=== PATIENT | male | born 1975 | race Caucasian/White ===

== ENCOUNTER 2017-08-24 03:32 | Inpatient (IN) ==
[2017-08-24] MEDS ORDERED: SALINE FLUSH 10ml SYRINGE IVF PRN (03:41)
[2017-08-24] MEDS ORDERED: ALBUTEROL/IPRATROPIUM 2.5mg-0.5mg/3ml NEB AEROSOL ONE (03:42)
--- NOTE | 2017-08-24 03:45 | Emergency Department Report ---
General Adult HPI - General Stated complaint: "flu-like" symptoms, fever, chills Time Seen by Provider: 08/24/17 03:41 Source: patient Mode of arrival: ambulatory Limitations: no limitations - History of Present Illness HPI narrative: 42-year-old male presents to the emergency department with the chief complaint of cough and body aches. Patient states his cough is productive of a green sputum. He notes generalized bodyaches. Patient has been noncompliant with his medications for the past almost a year. The body aches are moderate. There are generalized. No radiation. He does not note any exacerbating or remitting factors. Patient was at home when his symptoms began 2 weeks ago and it gradually increased in nature since onset. No other complaints or associated symptoms at this time. - Related Data Home Medications Medication Instructions Recorded Confirmed No known Home medications [No home 08/24/17 08/24/17 meds] Allergies Allergy/AdvReac Type Severity Reaction Status Date / Time codeine Allergy Severe Respiratory Verified 08/24/17 04:05 Depression Penicillins Allergy Severe Vomiting, Verified 08/24/17 04:05 hives morphine Allergy Unknown Verified 08/24/17 04:05 Review of Systems Constitutional: Reports: fever (subjective), weakness (generalized) Eyes: Denies: eye pain, vision change ENT: Denies: ear pain, throat pain Cardiovascular: Denies: chest pain, palpitations Respiratory: Reports: cough, dyspnea, wheezes. Denies: hemoptysis Gastrointestinal: Reports: diarrhea. Denies: abdominal pain, nausea, vomiting Genitourinary: Denies: urgency, dysuria Musculoskeletal: Denies: back pain, arthralgia Integumentary: Denies: erythema, rash Neurological: Denies: headache, numbness, paresthesias Psychiatric: Denies: anxiety, depression Endocrine: Denies: polydipsia, polyuria Hematological/Lymphatic: Denies: easy bruising, lymphadenopathy Allergic/Immunologic: Denies: facial swelling, urticaria PFSH Patient Stated Medical History Hypertension Yes Myocardial Infarction Yes Diabetes Mellitus Type 2 Yes: [id number] doesnt take his insulin Clinic Medical History (Last Reviewed 12/14/16 @ 22:25 by Nuha Nino MD) Diabetic neuropathy (Chronic Medical) Diabetes type 2, controlled (Chronic Medical) Hypertension (Chronic Medical) Heart attack (Resolved Medical) Surgical History: Heart Cath - age 31 Family History: Family History (Last Reviewed 12/14/16 @ 22:25 by Nuha Nino MD) Mother Osteoarthritis Diabetes High blood pressure Maternal Grandmother Cancer Maternal Grandfather Heart attack - Social History Smoking status: Current every day smoker Substance use type: marijuana Alcohol intake: current Alcohol intake frequency: holidays/special occasions only Household members: spouse, children Current occupational status: employed Current occupation: Fabricator Physical Exam - Limitations Limitations: no limitations - General General appearance: alert, in no apparent distress - Normal Exams: Head:: Normocephalic without trauma Eyes:: Pupils are PERRLA w/ EOMI, No scleral icterus, irritation, or foreign bodies noted ENMT:: No facial trauma, nasal exudates, pharyngeal erythema, or exudates are noted Dental: No fractured, loose, or missing teeth noted Neck:: Full range of motion, without adenopathy, JVD, bruits or thyromegaly Chest/Respirations:: Clear all carter (end expiratory wheezes bilaterally.), with good airflow, and symmetry bilaterally Cardiovascular:: Regular rate and rhythm, without murmur or gallop, Pulses 2+ all extremities, capillary refill, <2 seconds all extremities Abdomen:: Bowel sounds positive, soft, non-tender, non-distended, no hepatosplenomegaly, masses or bruits noted Lymphatic:: No lymphadenopathy, or lymphedema noted Musculoskeletal:: No tenderness, or deformity noted, good range of motion, all extremities Integumentary:: No rashes, hives, or bruising noted, hair and nails, without abnormality Neurological:: Patient is alert, and oriented, cranial nerves, motor/sensory/ cerebellar, exams w/o gross deficits, to observation Psychiatric:: Patient exhibits, appropriate attention, emotion and affect Course Vital Signs Temperature 101.7 F H 08/24/17 03:32 Pulse Rate 117 H 08/24/17 03:32 Respiratory Rate 22 08/24/17 03:32 Blood Pressure 133/75 08/24/17 03:32 Pulse Oximetry 91 08/24/17 03:32 Temperature 98.9 F 08/24/17 05:00 Pulse Rate 113 H 08/24/17 05:30 Respiratory Rate 25 H 08/24/17 05:30 Blood Pressure 101/57 08/24/17 05:30 Pulse Oximetry 92 08/24/17 05:30 Medical Decision Making - MDM Narrative Medical decision making narrative: Labs / imaging were discussed in detail with the patient and questions are answered. Patient was given 1 L normal saline intravenously in the emergency department in addition to the 1L of NS given by EMS. Patient was given 1 g acetaminophen by mouth 1 with improvement of symptoms. Levaquin 750 mg iv x 1 was ordered at 0431 when the chest x-ray was reviewed and sepsis was considered. Patient does not have any symptoms consistent with DKA. He is discussed with Dr. Abhishek Valenzuela the hospitalist and will be admitted to the ICU in improved condition. Patient and family are in agreement with the current plan of management. Patient is discussed with Dr. Abhishek Valenzuela and will be accepted to his service in improved condition. No further orders from accepting physician who is in agreement with the current plan of management. Levaquin 750 mg iv x 1 was ordered at 0431 when the chest x-ray was reviewed and sepsis was considered. Patient was never hypotensive in the ED and his lactate was < 4. - Differential Diagnosis pneumonia, bronchitis, viral syndrome, URI - Lab Data Result diagrams: 08/24/17 03:52 08/24/17 03:52 Lab Results 08/24/17 08/24/17 08/24/17 Range/Units 03:52 03:52 04:31 WBC 17.9 H (4.5-11.0) T/MM3 RBC 4.58 (4.50-5.90) M/MM3 Hgb 13.9 (13.5-17.5) GM/DL Hct 40.3 L (41-53) % MCV 88.0 (80-100) UM3 MCH 30.3 (26-34) UUG MCHC 34.5 (31-37) GM/DL RDW Std Deviation 42.2 (36.9-50.2) FL Plt Count 291 (130-400) T/MM3 MPV 10.9 (9.4-12.4) UM3 Immature Gran % (Auto) Not performed Neut % (Auto) Not performed Lymph % (Auto) Not performed Mckinley % (Auto) Not performed Eos % (Auto) Not performed Baso % (Auto) Not performed Neut # (Auto) Not performed Lymph # (Auto) Not performed Mckinley # (Auto) Not performed Eos # (Auto) Not performed Baso # (Auto) Not performed Abs Immat Gran (auto) Not performed Neutrophils % (Manual) 74.0 H (33-66) % Band Neutrophils % 8.0 H (0-6) % Lymphocytes % (Manual) 11.0 L (23-45) % Monocytes % (Manual) 7.0 (0-9.0) % Neutrophils # (Manual) 13.2 H (1.8-7.7) T/MM3 Band Neutrophils # 1.4 T/MM3 Lymphocytes # (Manual) 2.0 (1-4.8) T/MM3 Monocytes # (Manual) 1.3 H (0-0.8) T/MM3 RBC Morph Comment Normal Turbidity < 20 (0-20) Sodium 138 (134-144) MEQ/L Potassium 4.1 (3.6-5) MEQ/L Chloride 99 (98-107) MEQ/L Carbon Dioxide 23 (22-30) MEQ/L Anion Gap 16 H (5-15) meq/L BUN 12.0 (9-20) MG/DL Creatinine 0.9 (0.8-1.5) mg/dL GFR Calculation 92 BUN/Creatinine Ratio 13 (6-26) RATIO Glucose 296 H (75-110) MG/DL Calculated Osmolality 277 (261-280) MOSM/KG Calcium 9.9 (8.4-10.2) MG/DL Total Bilirubin 0.50 (0.20-1.30) MG/DL Icterus Index < 2 (0-7) AST 21 (17-59) U/L ALT 17 (1-50) U/L Alkaline Phosphatase 71 (38-126) U/L Troponin I < 0.012 (0-0.12) ng/ml NT-Pro-B Natriuret Pep < 11.1 (0-175) pg/mL Total Protein 8.0 (6.3-8.2) g/dL Albumin 4.7 (3.5-5.0) g/dL Globulin 3.3 (2.4-3.6) G/DL Albumin/Globulin Ratio 1.4 (1.1-2.2) RATIO Plasma Lactate 2.0 (0.6-2.2) MMOL/L Procalcitonin NG/ML Specimen Hemolysis < 15 (0-25) //18 Range/Units 04:31 WBC (4.5-11.0) T/MM3 RBC (4.50-5.90) M/MM3 Hgb (13.5-17.5) GM/DL Hct (41-53) % MCV (80-100) UM3 MCH (26-34) UUG MCHC (31-37) GM/DL RDW Std Deviation (36.9-50.2) FL Plt Count (130-400) T/MM3 MPV (9.4-12.4) UM3 Immature Gran % (Auto) Neut % (Auto) Lymph % (Auto) Mckinley % (Auto) Eos % (Auto) Baso % (Auto) Neut # (Auto) Lymph # (Auto) Mckinley # (Auto) Eos # (Auto) Baso # (Auto) Abs Immat Gran (auto) Neutrophils % (Manual) (33-66) % Band Neutrophils % (0-6) % Lymphocytes % (Manual) (23-45) % Monocytes % (Manual) (0-9.0) % Neutrophils # (Manual) (1.8-7.7) T/MM3 Band Neutrophils # T/MM3 Lymphocytes # (Manual) (1-4.8) T/MM3 Monocytes # (Manual) (0-0.8) T/MM3 RBC Morph Comment Turbidity (0-20) Sodium (134-144) MEQ/L Potassium (3.6-5) MEQ/L Chloride (98-107) MEQ/L Carbon Dioxide (22-30) MEQ/L Anion Gap (5-15) meq/L BUN (9-20) MG/DL Creatinine (0.8-1.5) mg/dL GFR Calculation BUN/Creatinine Ratio (6-26) RATIO Glucose (75-110) MG/DL Calculated Osmolality (261-280) MOSM/KG Calcium (8.4-10.2) MG/DL Total Bilirubin (0.20-1.30) MG/DL Icterus Index (0-7) AST (17-59) U/L ALT (1-50) U/L Alkaline Phosphatase (38-126) U/L Troponin I (0-0.12) ng/ml NT-Pro-B Natriuret Pep (0-175) pg/mL Total Protein (6.3-8.2) g/dL Albumin (3.5-5.0) g/dL Globulin (2.4-3.6) G/DL Albumin/Globulin Ratio (1.1-2.2) RATIO Plasma Lactate (0.6-2.2) MMOL/L Procalcitonin < 0.05 NG/ML Specimen Hemolysis (0-25) - Radiology Data Chest x-ray: Right sided infiltrate with potential early left-sided infiltrate. - EKG Data EKG #1 EKG results narrative: Sinus tachycardia. 119 bpm. No STEMI. Disposition Clinical Impression: Pneumonia, Sepsis, Hypoxia Disposition: 02 To [facility] Acute Care Condition: Improved Time of Disposition: 04:32 (Admit. Dr. Valenzuela. ) - Seen By: physician
[2017-08-24] MEDS ORDERED: NS 1,000 ML IV ONE ×2 (04:26→05:43)
[2017-08-24] MEDS ORDERED: LEVOFLOXACIN PB 750 MG/150 ML BAG IV SCH (04:45)
[2017-08-24] MEDS: ACETAMINOPHEN 500 MG TABLET PO SCH (04:58)
[2017-08-24] MEDS ORDERED: ALBUTEROL 2.5mg/0.5ml (0.5%) NEB AEROSOL PRN (05:27)
--- NOTE | 2017-08-24 05:32 | History & Physical Report ---
History of Present Illness Date: 08/24/17 Chief complaint: Cough, myalgias HPI: 42 M with uncontrolled diabetes and morbid obesity presented to the ER via EMS following two weeks of progressive productive cough, fever, and myalgias. In the ER he was initially maintaining his SPO2 but this fell following a nebulized bronchodilator treatment and he required supplemental O2 to maintain saturation >90. He met sepsis criteria based on vitals and labs and has a RML/ RLL infiltrate on CXR and is admitted for further evaluation and management. reports that he has been unable to afford OTC insulin for about a year, despite having been diagnosed with an SD at age 31 (no STENT). He however admits he smokes daily including regular marijuana use. he states that he has been admitted for pneumonia once before. Review of Systems - Constitutional Constitutional: Present: chills, fever(s) - Cardiovascular Cardiovascular: Present: dyspnea on exertion. Absent: chest pain, palpitations , syncope, orthopnea - Gastrointestinal Gastrointestinal: Absent: abdominal pain, change in bowel habits - Neurological Neurological: Absent: focal weakness Past Medical History Medical History: Medical History (Last Reviewed 12/14/16 @ 22:25 by Nuha Nino MD) Diabetic neuropathy (Chronic) Diabetes type 2, controlled (Chronic) Hypertension (Chronic) Heart attack (Resolved) Surgical History: Heart Cath - age 31 Family History: Family History (Last Reviewed 12/14/16 @ 22:25 by Nuha Nino MD) Mother Osteoarthritis Diabetes High blood pressure Maternal Grandmother Cancer Maternal Grandfather Heart attack Family History: As Above - Social History Smoking status: Current every day smoker Substance use type: marijuana Alcohol intake frequency: holidays/special occasions only Household members: spouse, children Current occupational status: employed ([employer]) Medications Home Medications Medication Instructions Recorded Confirmed Type No known Home medications [No home 08/24/17 08/24/17 History meds] Allergies Allergy/AdvReac Type Severity Reaction Status Date / Time codeine Allergy Severe Respiratory Verified 08/24/17 04:05 Depression Penicillins Allergy Severe Vomiting, Verified 08/24/17 04:05 hives morphine Allergy Unknown Verified 08/24/17 04:05 Exam Vital Signs: Temperature 101.7 F H 08/24/17 03:32 Pulse Rate 121 H 08/24/17 04:01 Respiratory Rate 20 08/24/17 03:52 Blood Pressure 124/94 H 08/24/17 04:01 Pulse Oximetry 93 08/24/17 04:01 Telemetry Rhythm: Sinus Rhythm, Sinus Tachycardia - Constitutional Present: mild distress - Routine HEENT Exam Head: Present: normocephalic, atraumatic Eye: Present: EOMI, PERRL ENT: Present: mucous membranes moist - Routine Neck Exam Present: supple, full ROM. Absent: JVD Comments: Thick - Routine Respiratory Exam Present: rhonchi. Absent: accessory muscle use, dyspnea, prolonged expiratory phase, respiratory distress - Routine Cardiovascular Exam Present: tachycardia. Absent: no murmur - Routine Abdominal Exam Present: soft, non distended, non tender - Routine Extremities Exam Present: normal capillary refill. Absent: cyanosis, clubbing, edema - Routine Skin Exam Present: intact. Absent: rash - Routine Neurological Exam Present: alert, oriented X3, CN II-XII intact - Routine Psychiatric Exam Present: normal affect - Additional findings Additional findings: Examination performed using telemedicine equipment with the assistance of the bedside nurse Results - Labs CBC & Chem 7: 08/24/17 03:52 08/24/17 03:52 Labs: Lactate 2 - Imaging and Cardiology Chest x-ray Status: image reviewed by me (RML/RLL infiltrate, radiologist's interpretation to be reviewed when available) Assessment and Plan (1) Severe sepsis with acute organ dysfunction Problem details: Evidenced by fever leukocytosis tachypnea and lactic acidosis due to CAP Current visit: Yes Status: Acute (2) CAP (community acquired pneumonia) Current visit: Yes Status: Acute (3) Hypoxia Current visit: Yes Status: Acute (4) Diabetes type 2, uncontrolled Current visit: Yes Status: Acute (5) Morbid obesity Current visit: Yes Status: Acute (6) Diabetic neuropathy Current visit: No Status: Chronic (7) Hypertension Current visit: No Status: Chronic Assessment and Plan: Mr. Farley is admitted to the CCU for IV Levaquin and Aztreonam (given his history of severe PCN allergy), IVF resuscitation to continue what was begun in the ER, Supplemental O2, nebulized breathing treatments, and close monitoring of his hemodynamic and pulmonary status. High dose correctional scale insulin ordered, as is A1C, and he would benefit from diabetes education and perhaps case management services. further symptomatic supportive and diagnostic cares will be provided as the current workup or changes in his clinical scenario indicate. plan of care was discussed with the patient at the time of my evaluation and he expressed understanding and a desire to proceed. i did inform him that continued non-adherence to his diabetes regimen would cost far more in the long run than the cost of insulin and lifestyle modification now. i said in no uncertain terms that my medical recommendation was to stop smoking, stop using marijuana, and use that money instead for medication and to follow-up with cost- effective medical care. DVT Prophylaxis: SCD's, Lovenox - Physician Narrative Physician: Aster Goetz MD Narrative: Date: 08/24/17 Time: 1320 CC: Flu-like symptoms HPI: Mr. Farley is a pleasant 42 y/o male pt with history of diabetes hypertension, previous myocardial infarction and thyroid issues as well as dyslipidemia. The patient went off all his medicines about 5 years ago except insulin. At about a year ago he stopped taking insulin, at that time he was on 70/30. He states this is all due to cost issues. Of note however he continues to smoke a half a pack a day. This winter he has had flu like symptoms multiple times. He reports symptoms of body aching, shortness of breath, cough, malaise and weakness. For the last 2 weeks he has had cough with green sputum production. Coughing makes him nauseated. He denies nausea otherwise. He has had progressive weakness and malaise as well as body aching. He's been restless particularly at night. He did have a fever last weekend and pretty much just laid around all weekend. He said progressive shortness of breath over the last 2 weeks. He has been using some left over albuterol nebulizers from his children and he reports that does help quite a bit. He's also been taken over- the-counter TheraFlu. He denies vomiting. He has had intermittent watery stools most recently 2 days ago. He denies black tarry stools or bloody stools. He denies any genitourinary symptoms. He denies any problems with lower extremity edema. He presented to the emergency room around midnight and was found to have a right middle lobe/right lower lobe infiltrate on his chest x-ray suggestive of pneumonia. His white blood cell count was elevated at 17.9 with 8% bands. Lactate was 2 and pro-calcitonin was normal. He had a temperature of 101.7 with a heart rate of 117. He came by EMS and was given a liter fluid by them. He was given another liter of fluid in the ER as well as Levaquin IV. When seen by me this morning he continues to feel rather poorly. He continues to feel short of breath and has a cough. He denies nausea. He did eat breakfast this morning without difficulty. He denies feeling feverish at this time. He denies lightheadedness or dizziness. He does continue to fill achy all over. Past medical history: Current medications: none Allergies: codeine, penicillins, morphine Medical history: hypertension hyperlipidemia hypothyroidism diabetes type II history of myocardial infarction without intervention Surgical history: heart catheterization Social history: with children current everyday smoker up approximately 1/2 pack a day history of smoking as much as 1 1/2 packs a day and has been smoking for 30 years. Previous heavy alcohol abuser but nothing lately daily marijuana use Family History: Mom living at. She has a history of coronary artery disease with bypass surgery, diabetes and valvular heart disease Dad history is unknown except that he is and he was alcoholic Review of systems: all 14 point review of systems were reviewed and were negative except as noted in the history of present illness Physical exam: Current vital signs:T 99.0, P106,R16, BP 108/64, 96% on 3 liters Gen: alert and oriented. NAD Skin: warm and dry HEENT: NC/AT PERRL, EOMI, Sclera, lids and conjunctiva wnl, MMM, OP clear Neck: supple. No JVD, Carotids 2+ without bruits. Lungs: Coarse, rhonchi on the right. No rales or wheezes. CV: regular. No murmur, rub or gallop Abd: soft. NT/ND, +BS MS: No edema. Good strength and ROM. Neuro: No focal deficit Psy: normal mood and affect Assessment and plan: CAP (community acquired pneumonia) -RML/RLL -Levaquin and aztre -Resp therapy -repeat CXR in am -Sputum cx pending -Blood cx pending Hypoxia -Wean oxygen as tolerated Diabetes type 2, uncontrolled -SSI -Diabetes education -CM c/s to help in obtaining medications Hypertension -currently low normal BPs, will address medications should he need some prior to discharge. HLP -Lipid profile -Pravastatin H/O SD without documented CAD -ASA -STatin Smoker -Advised cessation h/o hypothyroidism -Recheck TSH/FT4 Prophylaxis PPI, Lovenox Sepsis Assessment - Evaluation SIRS Criteria: temperature > 100.9, pulse > 90 beats/minute, WBC > 12,000, RR > 20 Severe Sepsis: lactate > 2.0 mg/dL Hospital Course Summary Disclaimer: The visit summary below is not to be considered part of the above Progress Note.
[2017-08-24] MEDS ORDERED: SALINE FLUSH 10ml SYRINGE IV PRN (05:43)
[2017-08-24] MEDS ORDERED: ONDANSETRON 4 MG/2 ML INJECTION IVP PRN (05:43)
[2017-08-24] MEDS ORDERED: GLUCOSE ORAL GEL 40% 37.5gm PO PRN (05:43)
[2017-08-24] MEDS ORDERED: DEXTROSE 50% SYRINGE 50ml (1 AMP) IVP PRN (05:43)
[2017-08-24 05:52] VITALS: BMI 39.9
[2017-08-24] MEDS: AZTREONAM 1 G in NS 100 ML IV SCH ×3 (06:32→18:37)
[2017-08-24] MEDS: LEVOFLOXACIN PB 750 MG/150 ML BAG IV SCH (06:33)
--- NOTE | 2017-08-24 07:58 | XRay Report ---
Indication: cough PROCEDURE: XR chest 1V: Encounter: Initial Comparison: None Findings: Airspace consolidation in the right midlung could be within the upper or middle lobes. Left lung is clear. No pleural effusion or pneumothorax. Heart size and mediastinal contours are within normal limits. Pulmonary vascularity is normal. Impression: Right-sided pneumonia. Recommend radiographic follow-up to document clearance. .
[2017-08-24] MEDS: INSULIN ASPART 100unit/ml INJECTION SQ PRN ×4 (08:10→22:26)
[2017-08-24] MEDS: ENOXAPARIN 40 MG/0.4 ML INJECTION SQ SCH (08:35)
[2017-08-24] MEDS: ACETAMINOPHEN 325 MG TABLET PO PRN ×2 (08:43→17:09)
[2017-08-24] MEDS: NS 1,000 ML IV SCH (14:15)
[2017-08-25] MEDS: NS 1,000 ML IV SCH ×3 (00:17→21:12)
[2017-08-25] MEDS: AZTREONAM 1 G in NS 100 ML IV SCH ×4 (01:05→20:42)
[2017-08-25] MEDS: ACETAMINOPHEN 500 MG TABLET PO SCH (03:55)
[2017-08-25] MEDS: LEVOFLOXACIN PB 750 MG/150 ML BAG IV SCH (06:40)
--- NOTE | 2017-08-25 08:31 | XRay Report ---
INDICATION: PNA PROCEDURE: CHEST 2-VIEWS UPRIGHT (PA & LAT) Encounter: Initial COMPARISON: August 24, 2017 FINDINGS: Continued airspace consolidation in the right midlung which is seen to be in the middle lobe on the lateral view. Left lung is stable and clear. No pneumothorax or pleural effusion. Heart size, pulmonary vascularity and mediastinal contours are within normal limits. Impression: No significant change in right middle lobe pneumonia. .
[2017-08-25] MEDS: ENOXAPARIN 40 MG/0.4 ML INJECTION SQ SCH (09:08)
[2017-08-25] MEDS: ASPIRIN 81 MG CHEWABLE TABLET PO SCH (09:08)
[2017-08-25] MEDS: METFORMIN 500 MG TABLET PO SCH (20:42)
[2017-08-25] MEDS: PRAVASTATIN 40 MG TABLET PO SCH (20:42)
[2017-08-25] MEDS: INSULIN ASPART 100unit/ml INJECTION SQ PRN (21:14)
[2017-08-26] MEDS: AZTREONAM 1 G in NS 100 ML IV SCH ×4 (02:06→19:07)
[2017-08-26] MEDS: NS 1,000 ML IV SCH ×3 (04:48→22:04)
[2017-08-26] MEDS: ACETAMINOPHEN 500 MG TABLET PO SCH (04:52)
[2017-08-26] MEDS: LEVOFLOXACIN PB 750 MG/150 ML BAG IV SCH (06:04)
[2017-08-26] MEDS: LEVOTHYROXINE 112 MCG TABLET PO SCH (06:04)
[2017-08-26] MEDS: INSULIN ASPART 100unit/ml INJECTION SQ PRN ×4 (06:04→21:24)
[2017-08-26] MEDS: ASPIRIN 81 MG CHEWABLE TABLET PO SCH (09:04)
[2017-08-26] MEDS: METFORMIN 500 MG TABLET PO SCH ×2 (09:04→19:04)
[2017-08-26] MEDS: ENOXAPARIN 40 MG/0.4 ML INJECTION SQ SCH (09:05)
--- NOTE | 2017-08-26 09:35 | Progress Note ---
- Date 08/26/17 Subjective: Mr. Farley is a pleasant 42 y/o male pt with history of diabetes hypertension , previous myocardial infarction and thyroid issues as well as dyslipidemia. The patient went off all his medicines about 5 years ago except insulin. At about a year ago he stopped taking insulin, at that time he was on 70/30. He states this is all due to cost issues. Of note however he continues to smoke a half a pack a day. This winter he has had flu like symptoms multiple times. He reports symptoms of body aching, shortness of breath, cough, malaise and weakness. For the last 2 weeks he has had cough with green sputum production. Coughing makes him nauseated. He denies nausea otherwise. He has had progressive weakness and malaise as well as body aching. He's been restless particularly at night. He did have a fever last weekend and pretty much just laid around all weekend. He said progressive shortness of breath over the last 2 weeks. He has been using some left over albuterol nebulizers from his children and he reports that does help quite a bit. He's also been taken over- the-counter TheraFlu. He denies vomiting. He has had intermittent watery stools most recently 2 days ago. He denies black tarry stools or bloody stools. He denies any genitourinary symptoms. He denies any problems with lower extremity edema. He presented to the emergency room around midnight and was found to have a right middle lobe/right lower lobe infiltrate on his chest x-ray suggestive of pneumonia. His white blood cell count was elevated at 17.9 with 8% bands. Lactate was 2 and pro-calcitonin was normal. He had a temperature of 101.7 with a heart rate of 117. He came by EMS and was given a liter fluid by them. He was given another liter of fluid in the ER as well as Levaquin IV. 08/26/17 When seen by me this morning he is sitting up in the chair. He states he had a really rough night. He was unable to sleep due to his restless leg syndrome and nicotine withdrawal. He was able to cough up a large sputum bolus last evening. He feels like he's breathing better since then. Denies any fevers or chills. He denies any chest pain or pressure. He denies palpitations. He denies any nausea , vomiting. He reports eating well. He has been ambulating in the room. He is maintaining on room air. Objective Vital signs: Temperature 98.5 F 08/26/17 00:00 Pulse Rate 76 08/26/17 07:00 Respiratory Rate 16 08/26/17 07:00 Blood Pressure 130/86 08/26/17 07:00 Pulse Oximetry 96 08/26/17 07:00 Height/Weight/BMI: Height 1.63 m Weight 106.1 kg Body Mass Index 39.9 Comments: Gen: alert and oriented. NAD Skin: warm and dry HEENT: NC/AT PERRL, EOMI, Sclera, lids and conjunctiva wnl, MMM, OP clear Neck: supple. No JVD, Carotids 2+ without bruits. Lungs: Coarse, No rales or wheezes. CV: regular. No murmur, rub or gallop Abd: soft. NT/ND, +BS MS: No edema. Good strength and ROM. Neuro: No focal deficit Psy: normal mood and affect Results - Labs CBC & Chem 7: 08/26/17 04:07 08/26/17 04:07 Microbiology Results: Microbiology 08/25/17 13:15 Peripheral/Iv Start Blood Culture - Preliminary Culture Initiated - Results Pending 08/25/17 13:21 Peripheral/Iv Start Blood Culture - Preliminary Culture Initiated - Results Pending 08/24/17 07:09 Sputum, Expectorated Gram Stain - Final 08/24/17 07:09 Sputum, Expectorated Sputum Culture - Preliminary Early growth 08/24/17 07:09 Urine Streptococcus pneumoniae Antigen (M - Final Assessment and Plan (1) Severe sepsis with acute organ dysfunction Problem details: Evidenced by fever leukocytosis tachypnea and lactic acidosis due to CAP Current visit: Yes Status: Acute (2) CAP (community acquired pneumonia) Current visit: Yes Status: Acute (3) Hypoxia Current visit: Yes Status: Acute (4) Diabetes type 2, uncontrolled Current visit: Yes Status: Acute (5) Morbid obesity Current visit: Yes Status: Acute (6) Diabetic neuropathy Current visit: No Status: Chronic (7) Hypertension Current visit: No Status: Chronic Assessment and Plan: Assessment and plan: CAP (community acquired pneumonia) -RML/RLL -Levaquin and aztreonam -Resp therapy -repeat CXR 08/25/17 showed no significant change in his right sided pneumonia -Sputum cx pending that is showing early growth -Blood cx shows positive strep pneumonia -repeat blood cultures still pending Hypoxia -on room air Diabetes type 2, uncontrolled -SSI -Diabetes education -CM c/s to help in obtaining medications Hypertension -currently normal BPs, will address medications should he need some prior to discharge. HLP -Lipid profile -Pravastatin started H/O [place] without documented CAD -ASA -STatin Smoker -Advised cessation -will provide a nicotine patch h/o hypothyroidism -elevated TSH at -FT4 pending -Levothyroxine started at 112 mcg daily -WIll need follow up check in about 6 weeks. RLS -Start amitriptyline at night Prophylaxis PPI, Lovenox - Physician Narrative Narrative: Date: 08/26/17 Time: 931 Hospital Course Summary Disclaimer: The visit summary below is not to be considered part of the above Progress Note.
[2017-08-26] MEDS: NICOTINE 14 MG PATCH TD SCH (10:25)
[2017-08-26] MEDS: NS IV SCH (19:09)
[2017-08-26] MEDS: AZTREONAM IV SCH (19:09)
[2017-08-26] MEDS ORDERED: AMITRIPTYLINE 10 MG TABLET PO SCH (21:00)
[2017-08-26] MEDS: PRAVASTATIN 40 MG TABLET PO SCH (21:24)
[2017-08-26] MEDS ORDERED: ALBUTEROL 2.5mg/3ml (0.083%) NEB AEROSOL PRN (21:35)
[2017-08-27] MEDS: NS IV SCH (01:07)
[2017-08-27] MEDS: AZTREONAM IV SCH (01:07)
[2017-08-27] MEDS: NS 1,000 ML IV SCH ×2 (01:16→13:49)
[2017-08-27] MEDS: ACETAMINOPHEN 500 MG TABLET PO SCH (04:13)
[2017-08-27] MEDS: LEVOTHYROXINE 112 MCG TABLET PO SCH (06:12)
[2017-08-27] MEDS: LEVOFLOXACIN PB 750 MG/150 ML BAG IV SCH (06:12)
[2017-08-27] MEDS ORDERED: AZTREONAM 1 G in NS 100 ML IV SCH (07:00)
[2017-08-27 07:56] VITALS: BP 126/80; PULSE 68; RESP 20; TEMP 95.9; O2SAT 95
[2017-08-27] MEDS: ENOXAPARIN 40 MG/0.4 ML INJECTION SQ SCH (08:11)
[2017-08-27] MEDS: METFORMIN 500 MG TABLET PO SCH (08:11)
[2017-08-27] MEDS: NICOTINE 14 MG PATCH TD SCH (08:11)
[2017-08-27] MEDS: ASPIRIN 81 MG CHEWABLE TABLET PO SCH (08:11)
[2017-08-27] MEDS ORDERED: NS IV ONE (08:15)
[2017-08-27] MEDS ORDERED: AZTREONAM IV ONE (08:15)
[2017-08-27] MEDS ORDERED: NICOTINE PATCH REMOVAL TD SCH (09:00)
--- NOTE | 2017-08-27 10:27 | Discharge Summary ---
Discharge Information Date of admission: 08/24/17 04:53 Anticipated date of discharge: 08/27/17 Attending Physician: Aster Goetz MD Consults: 08/24/17 06:51 Case Management Consult [CONS] Routine Reason For Exam: - Discharge Diagnosis (1) Severe sepsis with acute organ dysfunction Status: Acute (2) CAP (community acquired pneumonia) Status: Acute (3) Hypoxia Status: Acute (4) Diabetes type 2, uncontrolled Status: Acute (5) Morbid obesity Status: Acute (6) Diabetic neuropathy Status: Chronic (7) Hypertension Status: Chronic Strep pneumonia a bacteremia strep pneumonia right side pneumonia hypothyroidism uncontrolled diabetes type II dyslipidemia - Laboratory Labs: 08/27/17 04:14 08/26/17 04:07 - Microbiology Microbiology 08/24/17 07:09 Sputum, Expectorated Gram Stain - Final 08/24/17 07:09 Sputum, Expectorated Sputum Culture - Final Streptococcus pneumoniae 08/25/17 13:21 Peripheral/Iv Start Blood Culture - Preliminary No Growth After 1 Day 08/25/17 13:15 Peripheral/Iv Start Blood Culture - Preliminary No Growth After 1 Day 08/24/17 07:09 Urine Streptococcus pneumoniae Antigen (M - Final - Radiology Radiology: Chest x-rays showing right sided pneumonia History of Present Illness HPI: Mr. Farley is a pleasant 42 y/o male pt with history of diabetes hypertension , previous myocardial infarction and thyroid issues as well as dyslipidemia. The patient went off all his medicines about 5 years ago except insulin. At about a year ago he stopped taking insulin, at that time he was on 70/30. He states this is all due to cost issues. Of note however he continues to smoke a half a pack a day. This winter he has had flu like symptoms multiple times. He reports symptoms of body aching, shortness of breath, cough, malaise and weakness. For the last 2 weeks he has had cough with green sputum production. Coughing makes him nauseated. He denies nausea otherwise. He has had progressive weakness and malaise as well as body aching. He's been restless particularly at night. He did have a fever last weekend and pretty much just laid around all weekend. He said progressive shortness of breath over the last 2 weeks. He has been using some left over albuterol nebulizers from his children and he reports that does help quite a bit. He's also been taken over- the-counter TheraFlu. He denies vomiting. He has had intermittent watery stools most recently 2 days ago. He denies black tarry stools or bloody stools. He denies any genitourinary symptoms. He denies any problems with lower extremity edema. He presented to the emergency room around midnight and was found to have a right middle lobe/right lower lobe infiltrate on his chest x-ray suggestive of pneumonia. His white blood cell count was elevated at 17.9 with 8% bands. Lactate was 2 and pro-calcitonin was normal. He had a temperature of 101.7 with a heart rate of 117. He came by EMS and was given a liter fluid by them. He was given another liter of fluid in the ER as well as Levaquin IV. When seen by me this morning he continues to feel rather poorly. He continues to feel short of breath and has a cough. He denies nausea. He did eat breakfast this morning without difficulty. He denies feeling feverish at this time. He denies lightheadedness or dizziness. He does continue to fill achy all over. Objective Vital signs: Temperature 95.9 F L 08/27/17 07:55 Pulse Rate 68 08/27/17 07:55 Respiratory Rate 20 08/27/17 07:55 Blood Pressure 126/80 08/27/17 07:55 Pulse Oximetry 95 08/27/17 07:55 Height/Weight/BMI: Height 1.63 m Weight 105.4 kg Body Mass Index 39.9 Comments: Gen: alert and oriented. NAD Skin: warm and dry HEENT: NC/AT PERRL, EOMI, Sclera, lids and conjunctiva wnl, MMM, OP clear Neck: supple. No JVD, Carotids 2+ without bruits. Lungs: clear. No rales, rhonchi or wheezes. CV: regular. No murmur, rub or gallop Abd: soft. NT/ND, +BS MS: No edema. Good strength and ROM. Neuro: No focal deficit Psy: normal mood and affect Hospital Course This is a general summary of the patient's hospital course. For more details refer to the complete medical record. Hospital course: Mr. Farley was admitted with pneumonia. His sputum culture grew out strep pneumoniae as did 2 of 2 blood cultures. This was sensitive to levofloxacin which he was maintained on IV. He was receiving breathing treatments with marked improvement of his breathing. His 2nd set of blood cultures on the day of discharge had not grown anything after 1 day. Patient was feeling quite well. He was up and ambulating without problems. He was started on thyroid supplement and metformin for his diabetes. He has been asked to get a primary care physician to help him with his diabetic management as well as his thyroid disease. He was also started on a baby aspirin and a statin as he does have a history of an RI (no intervention). He will need close follow-up. He is stable for discharged to home today to complete this antibiotics orally. Time spent with patient: 25 - 35 minutes Resuscitation Status: Full Code Discharge Plan - Discharge Disposition Discharge Date: 08/27/17 Disposition: 01 Discharged Home, Self-Care *Condition: Improved Reason For Visit (Visit label in EMR): Sepsis - Discharge Medications *Discharge Medications: New Aspirin Chewable [ASA] 81 mg PO DAILY tab.chew Levofloxacin [Levaquin] 750 mg PO DAILY #14 tab Levothyroxine Tab [Synthroid] 112 mcg PO ACB #30 tab Pravastatin [Pravachol] 40 mg PO HS #30 tab Metformin [Glucophage] 500 mg PO BIDWM #60 tab - Discharge Packet/Instructions *Diet: Diabetic diet 2000 chinmay *Activity: As tolerated *Pain Management/Treatment: Tylenol *Wound Care: Not applicable *Expected Signs/Symptoms: Not applicable *Notify Physician if: Fevers, chills or worsening cough and sputum production *During Business Hours Contact: Primary care provider which you will need to acquire as soon as possible *After Business Hours Contact: Emergency room *Pending Lab/Results: Will be notified (Free T4 still pending) - Referrals/Follow Up *Referrals/Follow Up: Cheikh Alvarez MD [Physician] - 1 Week (Patient plans to establish care with Dr. Alvarez and his advised to see him within a week. He will need follow up on his thyroid within about 4 weeks and will need follow up on his diabetes along with diabetic education in the very near future. ) - Patient Handouts Patient Handouts: Hypothyroidism (GEN), Type 2 Diabetes in Adults (GEN) - Dismissal Complete Discharge Instructions are:: Complete Physician Narrative - Narrative Attestation Narrative: Date: 08/27/17 Time: 1022
[2017-08-27] MEDS: INSULIN ASPART 100unit/ml INJECTION SQ PRN (11:26)
--- NOTE | 2017-08-27 11:45 | Work/School Release ---
Work/School Release - Date Date: 08/27/17 - Work Release Excused for:: Mr. Farley was hospitalized from 08/24/17 through 08/27/17 May return to work on:: Monday08/28/17 without restrictions Restrictions:: None May resume normal activity on:: 08/28/17
--- NOTE | 2017-08-27 12:13 | Work/School Release ---
Work/School Release - Date Date: 08/27/17 - Work Release Remain off work/school for:: Monday08/28/17 Excused for:: Pt was hospitalized from 08/24/17 through 08/27/17 May return to work on:: Monday08/29/17 Restrictions:: None May resume normal activity on:: 08/29/17
== END 2017-08-27 12:30 | disposition home or self-care (01) | DRG 871 ==
LOC: ED 03:32 → MED 04:53
PROVIDERS: ADMIT Internal Medicine; ATTEND Internal Medicine Cardiovascular Disease